=== PATIENT | female | born 1990 | race Caucasian/White ===

== ENCOUNTER 2017-01-13 10:29 | Observation (INO) ==
[2017-01-13] MEDS ORDERED: 0.9 % Sodium Chloride 1,000 ML IVC ONE ×2 (11:41→14:23)
[2017-01-13] MEDS ORDERED: Pantoprazole 40 MG VIAL IVP ONE (11:41)
[2017-01-13] MEDS ORDERED: Ondansetron 4 MG/2 ML VIAL IVP ONE (11:41)
--- NOTE | 2017-01-13 11:46 | Emergency Department Note ---
Disposition Clinical Impression: Enteritis Abdominal pain Qualifiers: Abdominal location: epigastric Qualified Code(s): R10.13 - Epigastric pain Disposition: Admitted As Inpatient Condition: Good Referrals: NO,PCP [Primary Care Provider] - Forms: Work/School Release, ED Satisfaction Letter Time of Disposition: 14:14 Abdominal Pain HPI - General Chief Complaint: ED Abdominal Pain Stated Complaint: Vomitting,Hx ulcers Time Seen by Provider: 01/13/17 11:40 Source: patient Mode of arrival: ambulatory Limitations: no limitations Nursing Notes Reviewed: Yes Vital Signs Reviewed: Yes - History of Present Illness HPI Narrative: 26-year-old female who comes in complaining of epigastric abdominal pain. Patient has a history of peptic ulcers in the past. Patient had been on Nexium however her doctor's closed their doors and she hasn't had it in a while. She developed stabbing epigastric pain this morning about 4 AM. She's had nausea vomiting and there has been some blood in it. Pt Subjective Complaint: abdominal pain Onset (ago): hour(s) Consistency: constant (Several) Location: epigastric Pain Severity: severe Pain Scale: 10 Quality: stabbing Radiation: none Migration to: no migration Improves with: nothing Worsens with: nothing Context: history of similar episodes Associated symptoms: Reports: nausea, vomiting, hematemesis Treatments prior to arrival: none - Related Data Home Medications Medication Instructions Recorded Confirmed Cetirizine HCl [Zyrtec] 10 mg PO DAILY 06/27/16 06/27/16 Ciprofloxacin [Cipro] 500 mg PO BID 06/27/16 06/27/16 Diclofenac Sodium [Voltaren] 50 mg PO Q8HR 06/27/16 06/27/16 MetroNIDAZOLE [Flagyl] 500 mg PO TID 06/27/16 06/27/16 Ondansetron ODT [Zofran ODT] 4 mg SL Q4HR 06/27/16 06/27/16 Promethazine [Phenergan] 25 mg PO Q8HR 06/27/16 06/27/16 Previous Rx's Medication Instructions Recorded Dicyclomine [Bentyl] 10 mg PO QID PRN #20 capsule 06/27/16 OxyCODONE/APAP 5/325 [Percocet 1 each PO Q6HR PRN #14 tablet 06/27/16 5/325 MG] Oxycodone HCl/Acetaminophen 1 each PO QID PRN #8 tablet 07/26/16 [Percocet 5-325 mg Tablet] Allergies Allergy/AdvReac Type Severity Reaction Status Date / Time Nickel Allergy Rash Verified 01/13/17 11:06 acetaminophen [From Vicodin] AdvReac Agitated Verified 01/13/17 11:06 hydrocodone [From Vicodin] AdvReac Agitated Verified 01/13/17 11:06 ketorolac [From Toradol] AdvReac Agitated Verified 01/13/17 11:06 All systems ED: reviewed and negative except as stated. Constitutional: Denies: fever, chills, weakness, weight change Eyes: Denies: eye pain, eye discharge, vision change ENT ED: Denies: ear pain, throat pain, dental pain, hearing loss, epistaxis, congestion, dysphagia Cardiovascular: Denies: chest pain, palpitations, dyspnea on exertion, edema, syncope Respiratory: Denies: cough, dyspnea, wheezes, hemoptysis, stridor Gastrointestinal: Reports: abdominal pain, nausea, vomiting, hematochezia. Denies: diarrhea, constipation, hematemesis, melena Genitourinary: Denies: dysuria, frequency, hematuria, discharge Musculoskeletal: Denies: back pain, neck pain, arthralgia, myalgia Integumentary: Denies: rash, abrasion, lesions Neurological: Denies: headache, weakness, numbness, paresthesias, confusion, abnormal gait, vertigo Psychiatric: Denies: anxiety, depression, suicidal thoughts, homicidal thoughts , auditory hallucinations, visual hallucinations Endocrine: Denies: fatigue Hematological/Lymphatic: Denies: easy bleeding, easy bruising Allergic/Immunologic: Denies: facial swelling, urticaria Abdominal Pain PMH - Past Medical History Medical history: Reports: no medical history Female Surgical History: Reports: cholecystectomy, herniorrhaphy, hysterectomy, other [employer] history: Reports: endometriosis, ectopic , bilateral tubal ligation Psychiatric history: Reports: anxiety, bipolar, depression, panic disorder - Social History Smoking status: Current every day smoker Alcohol use: Reports: none Drug use: Reports: none Physical Exam - General Limitations: no limitations General appearance: alert, in no apparent distress - Head Head exam: atraumatic, normocephalic, normal inspection - Eye Eye exam: Present: normal appearance, PERRL, EOMI - Expanded Eye Exam Pupils: Left: reactive - ENT ENT exam: normal exam, normal oropharynx, mucous membranes moist - Expanded ENT Exam External ear exam: Present: normal external inspection Mouth exam: Present: normal external inspection Teeth exam: Present: normal inspection Throat exam: Present: normal inspection - Neck Neck exam: Present: normal inspection, full ROM, trachea midline - Chest Chest inspection: Present: normal inspection, symmetric chest wall rise - Respiratory Respiratory exam: Present: normal lung sounds bilaterally - Cardiovascular Cardiovascular exam: Present: regular rate, normal rhythm, normal heart sounds - Abdominal Exam Abdominal exam: Present: soft, tenderness. Absent: distention, guarding, rebound, rigidity Abdominal tenderness: Present: epigastrium - Extremities Exam Extremities exam: Absent: tenderness, pedal edema - Expanded Upper Extremity Exam Vascular exam: Normal: capillary refill, radial pulse - Expanded Lower Extremity Exam Foot/toe exam: Present: normal inspection, full ROM Neurovascular/Tendon exam: Absent: motor deficit, sensory deficit, tendon deficit Gait: observed and normal - Back Exam Back exam: Present: normal inspection, tenderness - Neurological Exam Neurological exam: Present: alert, oriented X3 - Expanded Neurological Exam Patient oriented to: Present: person, place, time Coma Scale Eye Opening: Spontaneous Coma Scale Motor Response: Obeys Commands Coma Scale Verbal Response: Oriented Coma Scale Total: 15 - Psychiatric Psychiatric exam: Present: normal affect, normal mood - Skin Skin exam: Present: warm, dry, intact, normal color Course - Reevaluation(s) Reevaluation #1: 26-year-old who states she has a history of peptic ulcer disease is been vomiting with blood in her vomit. He states she's had intermittent problems with abdominal pain for a couple of years. Workup here includes a normal hemoglobin. Her sedimentation rate is normal. CT scan shows multiple loops of thickened bowel distal ileum infectious or inflammatory enteritis. Patient was given Protonix, IV Cipro and Flagyl. Patient continues to be nauseated and vomiting will admit for further evaluation. Time: 14:34 - Consultations Consultation #1: Discussed with Dr. Osei, it. Time: 14:35 Vital Signs Temperature 98.3 F 01/13/17 11:02 Pulse Rate 83 01/13/17 11:02 Respiratory Rate 16 01/13/17 11:02 Blood Pressure 125/89 01/13/17 11:02 O2 Sat by Pulse Oximetry 100 01/13/17 11:02 Temperature 98.3 F 01/13/17 11:02 Pulse Rate 88 01/13/17 14:08 Respiratory Rate 16 01/13/17 14:08 Blood Pressure 95/77 01/13/17 14:08 O2 Sat by Pulse Oximetry 98 01/13/17 14:08 Oxygen Delivery Oxygen Delivery Room Air Abdominal Pain - Lab Data Lab results reviewed: Yes I reviewed the patient's lab results. Result diagrams: 01/13/17 11:52 01/13/17 11:52 Lab Results 01/13/17 01/13/17 01/13/17 Range/Units 11:52 11:52 11:52 WBC 7.5 (4.3-11.1) K/mcL RBC 4.19 (3.82-4.97) M/mcL Hgb 12.6 (11.5-15.4) g/dL Hct 38.3 (35.3-44.9) % MCV 91.4 (83.0-100.0) fL MCH 30.1 (28.0-33.3) pg MCHC 32.9 (31.6-35.5) g/dL RDW 11.8 (11.5-14.5) % Plt Count 200 (140-400) K/mcL MPV 9.0 L (9.4-12.4) fL Immature Gran % 0.4 (0-4) % Seg Neutrophils % 76.2 % Lymphocytes % 15.1 % Monocytes % 5.2 % Eosinophils % 2.8 % Basophils % 0.3 % Neutrophils # 5.7 (1.6-8.9) K/mcL Lymphocytes # 1.1 (0.6-4.6) K/mcL Monocytes # 0.4 (0.0-1.3) K/mcL Eosinophils # 0.2 (0.0-0.6) K/mcL Basophils # 0.0 (0.0-0.2) K/mcL ESR 1 (0-15) mm/hr Sodium 142 (136-145) mEq/L Potassium 2.8 L (3.5-4.5) mEq/L Chloride 120 H (98-109) mEq/L Carbon Dioxide 19 (19-29) mEq/L BUN 7 (7-20) mg/dL Creatinine 0.54 L (0.57-1.11) mg/dL Est GFR ( Amer) > 60 (> 60) Est GFR (Non-Af Amer) > 60 (> 60) BUN/Creatinine Ratio 13 (6-26) Glucose 58 L (70-99) mg/dL Calculated Osmolality 290 (280-300) Calcium 6.1 L (8.6-10.8) mg/dL Ionized Calcium (1.15-1.35) mmol/L Total Bilirubin 0.4 (0.2-1.2) mg/dL Direct Bilirubin 0.2 (0.0-0.5) mg/dL Indirect Bilirubin 0.2 (0.0-1.2) mg/dL AST 14 (5-34) Units/L ALT 14 (0-55) Units/L Alkaline Phosphatase 64 (38-126) Units/L Serum Total Protein 4.8 L (6.0-8.3) g/dL Albumin 2.7 L (3.5-5.0) g/dL Globulin 2.1 L (2.4-3.5) g/dL Albumin/Globulin Ratio 1.3 (1.1-2.2) Amylase 36 (25-125) Units/L Lipase 11 (8-78) Units/L Urine Color (Yellow) Urine Clarity (Clear) Urine pH (5.0-8.0) pH Units Ur Specific [place] (1.010-1.025) Urine Protein (Neg-Trace) mg/dL Urine Glucose (UA) (Normal) mg/dL Urine Ketones (Negative) mg/dL Urine Blood (Negative) Urine Nitrite (Negative) Urine Bilirubin (Negative) Urine Urobilinogen (Normal) mg/dL Ur Leukocyte Esterase (Negative) Ur Culture Indicated? (NO) 01/13/17 01/13/17 Range/Units 11:59 13:25 WBC (4.3-11.1) K/mcL RBC (3.82-4.97) M/mcL Hgb (11.5-15.4) g/dL Hct (35.3-44.9) % MCV (83.0-100.0) fL MCH (28.0-33.3) pg MCHC (31.6-35.5) g/dL RDW (11.5-14.5) % Plt Count (140-400) K/mcL MPV (9.4-12.4) fL Immature Gran % (0-4) % Seg Neutrophils % % Lymphocytes % % Monocytes % % Eosinophils % % Basophils % % Neutrophils # (1.6-8.9) K/mcL Lymphocytes # (0.6-4.6) K/mcL Monocytes # (0.0-1.3) K/mcL Eosinophils # (0.0-0.6) K/mcL Basophils # (0.0-0.2) K/mcL ESR (0-15) mm/hr Sodium (136-145) mEq/L Potassium (3.5-4.5) mEq/L Chloride (98-109) mEq/L Carbon Dioxide (19-29) mEq/L BUN (7-20) mg/dL Creatinine (0.57-1.11) mg/dL Est GFR ( Amer) (> 60) Est GFR (Non-Af Amer) (> 60) BUN/Creatinine Ratio (6-26) Glucose (70-99) mg/dL Calculated Osmolality (280-300) Calcium (8.6-10.8) mg/dL Ionized Calcium 1.20 (1.15-1.35) mmol/L Total Bilirubin (0.2-1.2) mg/dL Direct Bilirubin (0.0-0.5) mg/dL Indirect Bilirubin (0.0-1.2) mg/dL AST (5-34) Units/L ALT (0-55) Units/L Alkaline Phosphatase (38-126) Units/L Serum Total Protein (6.0-8.3) g/dL Albumin (3.5-5.0) g/dL Globulin (2.4-3.5) g/dL Albumin/Globulin Ratio (1.1-2.2) Amylase (25-125) Units/L Lipase (8-78) Units/L Urine Color Yellow (Yellow) Urine Clarity Clear (Clear) Urine pH 6.5 (5.0-8.0) pH Units Ur Specific [place] 1.020 (1.010-1.025) Urine Protein Negative (Neg-Trace) mg/dL Urine Glucose (UA) Normal (Normal) mg/dL Urine Ketones Negative (Negative) mg/dL Urine Blood Negative (Negative) Urine Nitrite Negative (Negative) Urine Bilirubin Negative (Negative) Urine Urobilinogen Normal (Normal) mg/dL Ur Leukocyte Esterase Negative (Negative) Ur Culture Indicated? NO (NO) - Radiology Data Radiology results reviewed: Yes I reviewed the patient's radiology results. Abdomen/Pelvis CT 01/13/17 11:42 IMPRESSION: 1. Circumferential wall thickening with perienteric stranding involving multiple loops of ileum likely reflecting an infectious or inflammatory enteritis. The terminal ileum is otherwise unremarkable. 2. No other acute abdominal or pelvic abnormality on this unenhanced study. D/ / 01/13/2017 13:23:21 Kadie Barnett MD / edward Interpreting Provider: Kadie Barnett MD
[2017-01-13 12:14] LABS: Bilirubin,Urine Negative (Negative); Blood,Urine Negative (Negative); Clarity,Urine Clear (Clear); Color,Urine Yellow (Yellow); Glucose,Urine (UA) Normal (Normal); Ketones,Urine Negative (Negative); Leukocyte Esterase,Urine Negative (Negative); Nitrite,Urine Negative (Negative); PH,Urine 6.5 pH Units (5.0-8.0); Protein,Urine Negative (Neg-Trace); Urobilinogen,Urine Normal (Normal)
[2017-01-13 12:33] LABS: Basophils % 0.3 %; Eosinophils # 0.2 K/mcL (0.0-0.6); Eosinophils % 2.8 %; Hematocrit 38.3 % (35.3-44.9); Hemoglobin 12.6 g/dL (11.5-15.4); Immature Granulocytes % 0.4 % (0-4); Lymphocytes # 1.1 K/mcL (0.6-4.6); Lymphocytes % 15.1 %; Mean Corpuscular HGB Conc 32.9 g/dL (31.6-35.5); Mean Corpuscular Hemoglobin 30.1 pg (28.0-33.3); Mean Corpuscular Volume 91.4 fL (83.0-100.0); Monocytes # 0.4 K/mcL (0.0-1.3); Monocytes % 5.2 %; Neutrophils # 5.7 K/mcL (1.6-8.9); Platelet Count 200 K/mcL (140-400); Red Blood Count 4.19 M/mcL (3.82-4.97); Red Cell Distribution Width 11.8 % (11.5-14.5); Segmented Neutrophils % 76.2 %
[2017-01-13] MEDS ORDERED: *HR* HYDROmorphone (PF) 1 MG/ML SYRINGE IVP ONE ×2 (12:50→14:12)
[2017-01-13 12:55] LABS: Alanine Aminotransferase 14 Units/L (0-55); Albumin 2.7 g/dL (3.5-5.0); Albumin/Globulin Ratio 1.3 (1.1-2.2); Alkaline Phosphatase 64 Units/L (38-126); Amylase 36 Units/L (25-125); Aspartate Amino Transferase 14 Units/L (5-34); BUN/Creatinine Ratio 13 (6-26); Bilirubin,Direct 0.2 mg/dL (0.0-0.5); Bilirubin,Indirect 0.2 mg/dL (0.0-1.2); Bilirubin,Total 0.4 mg/dL (0.2-1.2); Blood Urea Nitrogen 7 mg/dL (7-20); Calcium 6.1 mg/dL (8.6-10.8); Carbon Dioxide 19 mEq/L (19-29); Chloride 120 mEq/L (98-109); Globulin 2.1 g/dL (2.4-3.5); Glucose 58 mg/dL (70-99); Lipase 11 Units/L (8-78); Osmolality,Calculated 290 (280-300); Potassium 2.8 mEq/L (3.5-4.5); Sodium 142 mEq/L (136-145); Total Protein 4.8 g/dL (6.0-8.3); eGFR For African Americans > 60 (> 60); eGFR For Non-African Americans > 60 (> 60)
[2017-01-13] MEDS ORDERED: MetroNIDAZOLE 500 MG/100 ML 500 MG/100 ML BAG IVPB ONE (14:25)
[2017-01-13] MEDS ORDERED: Naloxone 0.4 MG/ML INJ IVP PRN (18:12)
[2017-01-13] MEDS ORDERED: 0.9 % Sodium Chloride 1,000 ML IVC SCH (18:15)
--- NOTE | 2017-01-13 18:17 | Internal Med History&Physical ---
Date of Encounter: 01/13/17 Time of Encounter: 17:50 Assessment and Plan (1) Gastroenteritis Current visit: Yes Status: Acute this could be infectious vs inflammatory, CT abdomen reported ileitis, etiology is unclear-no personal or family history of inflammatory bowel disease, we will manage conservatively for outpatient followup with a GI specialist, do not believe that antibiotics is indicated NPO for now IVF, pain management, electrolyte replacement (2) Hypokalemia due to loss of potassium Current visit: Yes Status: Acute from GI loss, we will replace aggressively and monitor electrolytes (3) Hypomagnesemia Current visit: Yes Status: Acute from GI loss, we will replace aggressively and monitor electrolytes (4) Hypophosphatemia Current visit: Yes Status: Acute from GI loss, we will replace aggressively and monitor electrolytes (5) PUD (peptic ulcer disease) Current visit: Yes Status: Acute she has not been on her medications in a while and this current predicament may have been precipitated by hunger as she went to bed the prior night without food , we will manage with IV protonix, avoid NSAIDS for outpatient GI followup for endoscopy consideration (6) Mood disorder Current visit: Yes Status: Chronic patient is not on any medication at home, this seems to be self managed, we will monitor Internal Medicine - H&P: HPI Chief complaint: abdominal pain, nausea and vomiting Admitted From: Emergency Dept Plans for Post Hospital Care: Home History of present illness: Ms. Martinez is a 26 year old female with a history of clinically diagnosed peptic ulcer disease was in her usual state of health until this morning when she began to experience epigastric pain. She went to bed last night without eating because she got home late from work so she did not get the chance to eat. She was awoken this morning at around 4am with severe epigastric pain that was both stabbing and burning in character. She reports that the severity was 10/10, radiated to her back, had no alleviating or relieving factors. This was followed by nausea and vomiting, the initial vomitus was blood streaked but subsequent ones contained clear contents. She also had several bouts of loose stools, she presented here for that reason for further evaluation. Of note she was diagnosed with peptic ulcer about 5 years ago, she has never had an EGD, she had been on NSAIDS at the time for endometriosis and since the diagnosis she has avoided NSAIDS. She was on Nexium and her symptoms were controlled but for the past 3 years she has not been on nexium. Her symptoms has been recurrent but are usually managed with milk, this is the worse it has been so far. Past Med Surg Social Fam HX - Past Medical History Source: patient Medical history: other (PUD) Psychiatric history: anxiety, bipolar, depression, panic disorder - Past Surgical History Surgical History: cholecystectomy, herniorrhaphy, hysterectomy, ANNA/BSO, other ( Tonsillectomy, adhesiotomy, d/c) - Social History Smoking Status: Current every day smoker (1 pack lasts a week) Smokeless Tobacco Status: No Alcohol use: none Drug use: none Occupational status: employed Current living situation: Home - Independent, With Family Activity Level: Independent ambulation Additional social history: she is in a relationship and has 3 children - Family History Grandmother Family Member Ethnicity: Non- Living Status: Age at : 64 Cause of : lung cancer Hx Family Cardiac Disorders: No Hx Family Respiratory Disorders: No Hx Family Cancer: Yes Hx Family GI Disorders: No Hx Family Genitourinary Disorders: No Hx Family Endocrine Disorder: Yes Hx Family Musculoskeletal Disorders: No Hx Family Neuromuscular Disorders: No Hx Family Neurologic Disorders: No Hx Family HEENT Disorders: No Hx Family Autoimmune Disorders: No Hx Family Reproductive Disorders: No Hx Family Psychosocial Disorders: No Hx Family Medical Disorders: No Internal Medicine - H&P: Meds No Known Home Drugs 01/13/17 [History] Allergies Nickel Allergy (Verified 01/13/17 11:06) Rash acetaminophen [From Vicodin] Adverse Reaction (Verified 01/13/17 11:06) Agitated hydrocodone [From Vicodin] Adverse Reaction (Verified 01/13/17 11:06) Agitated ketorolac [From Toradol] Adverse Reaction (Verified 01/13/17 11:06) Agitated All Systems PM: A 10-system review of systems was performed and is negative for pertinent findings except as documented above in the HPI. - Constitutional Constitutional: fatigue, malaise, weakness, no chills, no fever(s), no night sweats - EENT Eyes: no change in vision, no discharge, no pain, no photophobia Ears: no ear discharge, no ear pain, no tinnitus Nose, mouth and throat: no dysphagia, no nasal discharge, no neck pain, no sore throat - Cardiovascular Cardiovascular ROS IM: no chest pain, no diaphoresis, no dyspnea, no lightheadedness, no palpitations, no syncope - Respiratory Respiratory: cough, no dyspnea, no wheezing, no excessive phlegm production - Gastrointestinal Gastrointestinal: abdominal pain, change in stool character, diarrhea, dyspepsia , heartburn, hematemesis, loose stools, nausea, vomiting, no hematochezia, no melena - Genitourinary Genitourinary: no change in urinary stream, no dysuria, no flank pain, no hematuria - Musculoskeletal Musculoskeletal ROS IM: no numbness, no tingling - Integumentary Integumentary IM: no rash, no unusual bruising - Neurological Neurological ROS: no confusion, no convulsions, no focal weakness, no numbness, no tingling, no tremor(s) - Psychiatric Psychiatric: anxiety, depression, no auditory hallucinations, no hallucinations - Endocrine Endocrine IM: fatigue, no polyphagia, no polyuria - Hematologic/Lymphatic Hematologic/Lymphatic: no easy bruising - Allergic/Immunologic Allergic/Immunologic: GI upset with certain foods, no tongue swelling, no throat swelling - Constitutional Vitals: Temp Pulse Resp BP Pulse Ox 97.4 F L 61 14 101/63 100 01/13/17 16:28 01/13/17 16:28 01/13/17 16:28 01/13/17 16:28 01/13/17 16:28 PHYSICAL EXAMINATION: CONSTITUTIONAL: Young female, lying in bed, Alert, in acute distress, makes good eye contact HEENT: NC/AT, EOMI, PERRLA, anicteric sclera, normal conjunctiva, supple, clear nares, dry mucous membranes, clear oropharynx, central uvula RESP: no chest wall tenderness with palpation, lungs are clear to auscultation bilaterally, good AE bilaterally, No crackles or wheeze CARDIO: Normal hearts sounds; S1 and 2, RRR with no murmurs, no JVD, no ankle edema GI: Soft, full, tenderness in thew epigastric area, no organomegaly felt. MUSCULOSKELETAL: grossly normal movements bilaterally, no deformities noted, no calf tenderness EXTREMITIES: No clubbing, cyanosis or edema, NEUROLOGIC: CN 2-12 intact grossly. No motor/sensory deficit appreciated, PSYCHIATRY: AAO x 3. Mood is fair, exhibits appropriate judgement SKIN: no skin rash or ulcers noted Internal Med - H&P Results - Labs CBC & Chem 7: 01/13/17 11:52 01/13/17 11:52 - Diagnostic Studies CT scan - abdomen Status: image reviewed by me
[2017-01-13] MEDS: *HR* HYDROmorphone (PF) 1 MG/ML SYRINGE IVP PRN ×3 (19:06→23:19)
[2017-01-13 19:52] LABS: Magnesium 0.9 mg/dL (1.6-2.6); Phosphorous 1.9 mg/dL (2.3-4.7)
[2017-01-14] MEDS ORDERED: Ondansetron 4 MG/2 ML VIAL IVP SCH
[2017-01-14] MEDS ORDERED: Magnesium Sulfate 4 GM in D5% in Water 100 ML IVPB ONE (00:25)
[2017-01-14] MEDS ORDERED: Potassium Phosphate 44 MEQ in 0.9 % Sodium Chloride 250 ML IVPB ONE (00:25)
[2017-01-14] MEDS: Nicotine 21 MG PATCH.TD24 TD SCH ×2 (01:09→07:22)
[2017-01-14] MEDS ORDERED: Potassium Chloride 40 MEQ, Lidocaine 1% 2 ML in D5% in Water 500 ML IVPB ONE (01:13)
[2017-01-14] MEDS: *HR* HYDROmorphone (PF) 1 MG/ML SYRINGE IVP PRN ×3 (03:23→16:35)
[2017-01-14] MEDS: *HR* Heparin 5,000 UNIT/ML VIAL SQ SCH ×2 (05:09→16:36)
[2017-01-14] MEDS: Pantoprazole 40 MG VIAL IVP SCH ×2 (05:10→16:36)
[2017-01-14 08:15] LABS: Basophils % 0.2 %; Eosinophils # 0.2 K/mcL (0.0-0.6); Eosinophils % 3.5 %; Hematocrit 36.4 % (35.3-44.9); Hemoglobin 11.9 g/dL (11.5-15.4); Immature Granulocytes % 0.4 % (0-4); Lymphocytes # 2.1 K/mcL (0.6-4.6); Lymphocytes % 45.8 %; Mean Corpuscular HGB Conc 32.7 g/dL (31.6-35.5); Mean Corpuscular Hemoglobin 29.4 pg (28.0-33.3); Mean Corpuscular Volume 89.9 fL (83.0-100.0); Mean Platelet Volume 8.9 fL (9.4-12.4); Monocytes # 0.5 K/mcL (0.0-1.3); Monocytes % 10.4 %; Neutrophils # 1.8 K/mcL (1.6-8.9); Platelet Count 182 K/mcL (140-400); Red Blood Count 4.05 M/mcL (3.82-4.97); Red Cell Distribution Width 11.8 % (11.5-14.5); Segmented Neutrophils % 39.7 %
[2017-01-14] MEDS ORDERED: *HR* HYDROcodone/Acet 5/325 mg TABLET PO PRN (08:58)
[2017-01-14] MEDS: Ondansetron ODT 4 MG TAB.RAPDIS SL PRN ×2 (10:16→20:11)
[2017-01-14 11:35] LABS: BUN/Creatinine Ratio 8 (6-26); Blood Urea Nitrogen 7 mg/dL (7-20); Calcium 8.8 mg/dL (8.6-10.8); Carbon Dioxide 20 mEq/L (19-29); Chloride 108 mEq/L (98-109); Glucose 93 mg/dL (70-99); Magnesium 2.5 mg/dL (1.6-2.6); Osmolality,Calculated 284 (280-300); Phosphorous 3.6 mg/dL (2.3-4.7); Potassium 4.2 mEq/L (3.5-4.5); Sodium 138 mEq/L (136-145); eGFR For African Americans > 60 (> 60); eGFR For Non-African Americans > 60 (> 60)
[2017-01-14] MEDS: *HR* OxyCODONE Immed Rel 5 MG TABLET PO PRN ×2 (11:56→18:30)
[2017-01-14] MEDS: Ringers Solution, Lactated 1,000 ML IVC SCH ×2 (11:58→21:13)
[2017-01-14] MEDS ORDERED: *HR* HYDROmorphone (PF) 1 MG/ML SYRINGE IVP ONE (13:57)
[2017-01-14] MEDS ORDERED: Polyethylene Glycol 3350 255 GM POWDER PO ONE (17:00)
--- NOTE | 2017-01-14 19:44 | Internal Med Progress Note ---
Date of Encounter: 01/14/17 Time of Encounter: 12:00 - Assessment and plan (1) Abdominal pain Current Visit: Yes Status: Acute Assessment and plan: Severe abdominal pain due to ileitis. Pain medications. GI service consult. Qualifiers: Abdominal location: epigastric Qualified Code(s): R10.13 - Epigastric pain (2) Ileitis Current Visit: Yes Status: Acute Assessment and plan: CT of the abdomen and pelvis revealed circumferential wall thickening with perienteric stranding involving multiple loops of ileum. Terminal ileum is unremarkable. Nothing by mouth. GI consulted for possible colonoscopy tomorrow. Continue pain control. IV fluids. (3) Hypokalemia due to loss of potassium Current Visit: Yes Status: Acute Assessment and plan: Replete. (4) Hypomagnesemia Current Visit: Yes Status: Acute Assessment and plan: Replete. (5) Hypophosphatemia Current Visit: Yes Status: Acute Assessment and plan: Replete. - Subjective Interval history: Patient reports severe abdominal pain after eating her breakfast. Mild nausea. No vomiting. No diarrhea. - Constitutional Vitals: Temp Pulse Resp BP Pulse Ox 97.7 F 61 13 103/65 98 01/14/17 07:35 01/14/17 07:35 01/14/17 07:35 01/14/17 07:35 01/14/17 07:35 General appearance: Present: cooperative, A&O X 3, pleasant, no acute distress, answers questions appropriately - Respiratory Respiratory exam: Present: CTAB - Cardiovascular Cardiovascular exam: Present: RRR - GI/Abdominal GI/Abdominal exam: Present: distended (Mildly distended), normal bowel sounds, soft, tenderness (Severe Diffuse tenderness) - Extremities Exam Extremities exam: Absent: pedal edema - Back Exam Back exam: Absent: CVA tenderness (L), CVA tenderness (R) - Neurological Exam Neurological exam: Present: alert, oriented X3, no focal deficits, strengths equal and symetr throughout. Absent: facial droop, speech deficit - Skin Skin exam: Absent: rash Internal Medicine: Result - Labs CBC & Chem 7: 01/14/17 08:05 01/14/17 10:08 Labs: Short CBC 01/14/17 Range/Units 08:05 WBC 4.5 (4.3-11.1) K/mcL Hgb 11.9 (11.5-15.4) g/dL Hct 36.4 (35.3-44.9) % Plt Count 182 (140-400) K/mcL Neutrophils # 1.8 (1.6-8.9) K/mcL BMP 01/14/17 10:08 Sodium 138 Potassium 4.2 D Chloride 108 Carbon Dioxide 20 BUN 7 Creatinine 0.87 D Glucose 93 Calcium 8.8 D - Impressions Impressions KUB X-Ray 01/14/17 15:14 IMPRESSION: Nonspecific, nonobstructive bowel gas pattern. D/ / Balbir Hernandez MD / Balbir Hernandez MD Interpreting Provider: Balbir Hernandez MD Consult Discharge Plan - Plan Referrals: Elan Cueva [Non-Partnered Physician] - 01/25/17 5:00 pm
[2017-01-15] MEDS: *HR* HYDROmorphone (PF) 1 MG/ML SYRINGE IVP PRN ×2 (00:48→08:25)
[2017-01-15] MEDS: *HR* OxyCODONE Immed Rel 5 MG TABLET PO PRN ×2 (03:31→15:37)
[2017-01-15] MEDS: Ringers Solution, Lactated 1,000 ML IVC SCH (05:52)
[2017-01-15] MEDS: Pantoprazole 40 MG VIAL IVP SCH (05:52)
[2017-01-15] MEDS: *HR* Heparin 5,000 UNIT/ML VIAL SQ SCH (05:53)
[2017-01-15 06:49] LABS: BUN/Creatinine Ratio 7 (6-26); Blood Urea Nitrogen 6 mg/dL (7-20); Calcium 9.6 mg/dL (8.6-10.8); Carbon Dioxide 25 mEq/L (19-29); Chloride 106 mEq/L (98-109); Glucose 80 mg/dL (70-99); Magnesium 1.7 mg/dL (1.6-2.6); Osmolality,Calculated 285 (280-300); Phosphorous 3.7 mg/dL (2.3-4.7); Potassium 4.2 mEq/L (3.5-4.5); Sodium 139 mEq/L (136-145); eGFR For African Americans > 60 (> 60); eGFR For Non-African Americans > 60 (> 60)
--- NOTE | 2017-01-15 07:53 | Anesthesia Evaluation PreOp ---
Date of Encounter: 01/15/17 Time of Encounter: 07:51 - Past History Planned Operation: EGD/Colonoscopy Cardiac History: Denies any Significant Hx Pulmonary History: Smoker (13 years) [employer] History: Denies Any Significant HX Other Medical History: GERD, Other (H/O PUD) Anesthesia History: No Prior Anesthetic Complications, Past Anesthesia ( hysterectomy) Alcohol Use: none Drug use: none Medications and Allergies No Known Home Drugs 01/13/17 [History] Allergies Nickel Allergy (Verified 01/13/17 11:06) Rash acetaminophen [From Vicodin] Adverse Reaction (Verified 01/13/17 11:06) Agitated hydrocodone [From Vicodin] Adverse Reaction (Verified 01/13/17 11:06) Agitated ketorolac [From Toradol] Adverse Reaction (Verified 01/13/17 11:06) Agitated - Meds/Allergy Pre-op Review Medications Reviewed: Yes Allergies Reviewed: Yes Beta Blockers on Current Med List: No Anesthesia Results - Labs 01/14/17 08:05 01/15/17 06:27 Anesthesia Exam Vital Signs/O2 Sat, Most Current Temp Pulse Resp BP Pulse Ox 97.9 F 60 14 100/62 98 01/15/17 06:55 01/15/17 06:55 01/15/17 06:55 01/15/17 06:55 01/15/17 06:55 Height: 5'6''/1.68 m Weight: 125 lbs/56.7 kg NPO (# of Hours): 8 Pain Scale: 10 Pain Scale Used: Numeric (1 - 10) - HEENT Pupil (Motor): EOMI Mallampati: II Teeth: Normal Oral Opening: Greater than 3 - [employer] LOC: Oriented [employer] Motor: Normal RUE, Normal LUE, Normal RLE, Normal LLE, Normal Face [employer] Sensory: Normal: RUE, LUE, RLE, LLE, Face - Cardiac Rhythm: Regular Murmur: None - Pulmonary Breath Sounds: bilateral Clear Respiratory Effort: Symmetrical Anesthesia Assess/Plan ASA Score: 2 Modified Ann Scale for Level of Consciousness: Cooperative, oriented, and tranquil Anesthetic Plan: MAC Monitoring Plan: Standard Monitors
[2017-01-15] MEDS: Nicotine 21 MG PATCH.TD24 TD SCH (08:29)
[2017-01-15] MEDS ORDERED: Tetracaine/Benzocaine/Butamben 200MG/SPRAY (100SPY/BOT) MM ONE (09:27)
[2017-01-15] MEDS ORDERED: Simethicone 40 MG/0.6 ML MLS IR ONE (09:27)
[2017-01-15] MEDS ORDERED: 0.9 % Sodium Chloride 500 ML IVC SCH (09:30)
--- NOTE | 2017-01-15 11:23 | Gastroenterology Consult Note ---
<Abhinav Xiao Baltazar - Last Filed: 01/15/17 11:18> Date of Encounter: 01/15/17 Time of Encounter: 10:20 - Assessment and plan (1) Abdominal pain Status: Acute Assessment and plan: CT A/P showed circumferential wall thickening with perienteric stranding involving multiple loops of ileum likely reflecting infectious or inflammatory enteritis, the terminal ileum was otherwise unremarkable. Plan for EGD and colonoscopy today, if negative, may consider capsule endoscopy as outpatient. Follow up with Dr. Palmer as outpatient in 2 weeks. Continue pain control. Qualifiers: Abdominal location: epigastric Qualified Code(s): R10.13 - Epigastric pain (2) Ileitis Status: Acute Assessment and plan: Plan for EGD and colonoscopy today, if negative, may consider capsule endoscopy as outpatient. Follow up with Dr. Palmer as outpatient in 2 weeks. Continue pain control. - Time Spent With Patient Total time spent is greater than 50% in coordination of care (as documented) at patient's floor/unit and/or counseling patient: GI History of Present Illness - Data of Consult Patient: new to practice Consult date: 01/15/17 Requesting Physician: Emeli Saldaña - Consult Narrative Reason for consult: abdominal pain, CT with ileitis History of present illness: Ms. Martinez is a 26 year old female with PMHx of PUD who presented with severe epigastric pain that woke her up from sleep, followed by nausea and vomiting. She reports blood streaks in her initial vomitus, but subsequent ones contained clear liquid. She also reports several episodes of loose stools. CT A/P showed circumferential wall thickening with perienteric stranding involving multiple loops of ileum likely reflecting infectious or inflammatory enteritis, the terminal ileum was otherwise unremarkable. Procedures: None NSAIDs: None Anticoagulation: None Past Med Surg Social Fam HX - Past Medical History Medical history: other (PUD) Psychiatric history: anxiety, bipolar, depression, panic disorder - Past Surgical History Surgical History: cholecystectomy, herniorrhaphy, hysterectomy, ANNA/BSO, other ( Tonsillectomy, adhesiotomy, d/c) - Social History Smoking Status: Current every day smoker (1 pack lasts a week) Smokeless Tobacco Status: No Alcohol use: none Drug use: none - Family History Grandmother Family Member Ethnicity: Non- Living Status: Age at : 64 Cause of : lung cancer Hx Family Cardiac Disorders: No Hx Family Respiratory Disorders: No Hx Family Cancer: Yes Hx Family GI Disorders: No Hx Family Genitourinary Disorders: No Hx Family Endocrine Disorder: Yes Hx Family Musculoskeletal Disorders: No Hx Family Neuromuscular Disorders: No Hx Family Neurologic Disorders: No Hx Family HEENT Disorders: No Hx Family Autoimmune Disorders: No Hx Family Reproductive Disorders: No Hx Family Psychosocial Disorders: No Hx Family Medical Disorders: No - Gastrointestinal Gastrointestinal: Present: as per HPI - Constitutional Constitutional: as per HPI - EENT Eyes: as per HPI Ears: Present: as per HPI Nose, mouth and throat: Present: as per HPI - Cardiovascular Cardiovascular ROS: Present: as per HPI - Respiratory Respiratory IM: Present: as per HPI - Genitourinary Genitourinary: Absent: change in color, Urinary frequency - Neurological ROS Neurological GI: Present: as per HPI - Hematologic/Lymphatic Hematologic/Lymphatic pediatric: Present: as per HPI - Musculoskeletal Musculoskeletal ROS GI: Present: as per HPI - Integumentary Integumentary GI: Present: as per HPI - Psychiatric ROS Psychiatric GI: Present: as per HPI - Endocrine Endocrine IM: Present: as per HPI - Constitutional Vitals: Temp Pulse Resp BP Pulse Ox 97.7 F 61 16 129/78 99 01/15/17 10:58 01/15/17 10:58 01/15/17 10:58 01/15/17 10:58 01/15/17 10:58 General appearance: Present: cooperative, A&O X 3, no acute distress, answers questions appropriately - Head Head exam: Present: atraumatic, normocephalic - Eye Eye exam: Present: normal appearance, sclera anicteric - ENT ENT exam: Present: mucous membranes dry - Neck Neck exam general surgery: Present: normal inspection, trachea midline - Respiratory Respiratory exam: Present: CTAB. Absent: rales, rhonchi, wheezes - Cardiovascular Cardiovascular exam: Present: RRR, +S1, +S2 - GI/Abdominal GI/Abdominal exam: Present: soft, tenderness (generalized), no peritoneal signs. Absent: distended, firm, guarding - Rectal Rectal exam: Present: deferred - Extremities Exam Extremities exam: Present: warm - Neurological Exam Neurological exam: Present: no focal deficits - Psychiatric Psychiatric exam: Present: normal affect, normal mood - Skin Skin exam: Present: dry, intact, normal color, warm Results - Labs CBC & Chem 7: 01/14/17 08:05 01/15/17 06:27 Labs: Last Result ESR 1 mm/hr (0-15) 01/13/17 11:52 Calcium 9.6 mg/dL (8.6-10.8) 01/15/17 06:27 C-Reactive Protein 6 mg/L (Less than 5) H 01/15/17 10:13 Entire Visit Hgb 11.9 g/dL (11.5-15.4) 01/14/17 08:05 Hct 36.4 % (35.3-44.9) 01/14/17 08:05 Total Bilirubin 0.4 mg/dL (0.2-1.2) 01/13/17 11:52 AST 14 Units/L (5-34) 01/13/17 11:52 ALT 14 Units/L (0-55) 01/13/17 11:52 Amylase 36 Units/L (25-125) 01/13/17 11:52 Lipase 11 Units/L (8-78) 01/13/17 11:52 - Impressions Impressions KUB X-Ray 01/14/17 15:14 IMPRESSION: Nonspecific, nonobstructive bowel gas pattern. D/ / Balbir Hernandez MD / Balbir Hernandez MD Interpreting Provider: Balbir Hernandez MD Consult Discharge Plan - Plan Additional Instructions: continue with a soft diet at home. avoid heavy food. drink plenty of fluids. stop smoking, this could make worse the inflammation of your bowels. follow up in the clinic as scheduled. Referrals: Elan Cueva [Non-Partnered Physician] - 01/25/17 5:00 pm Tonja Palmer MD [Partnered Physician] - (follow up in 1-2 weeks (pls coordinate with [facility] clinic how to schedule a Capsule endoscopy as outpatient for this pt). Web request sent n 01/15/17.) Prescriptions: Ondansetron ODT [Zofran ODT] 4 mg SL Q6HR PRN #20 tab.rapdis PRN Reason: Nausea And Vomiting OxyCODONE Immed Rel [Roxicodone 5 MG] 2.5 mg PO Q6HR PRN #20 tablet PRN Reason: Pain Nicotine Patch [Nicoderm] 21 mg TD DAILY #30 patch.td24 <Tonja Palmer - Last Filed: 01/15/17 17:48> Date of Encounter: 01/15/17 - Time Spent With Patient Total time spent is greater than 50% in coordination of care (as documented) at patient's floor/unit and/or counseling patient: GI History of Present Illness - Data of Consult Requesting Physician: Emeli Saldaña - Consult Narrative History of present illness: Ms. Martinez is a 26 year old female - Constitutional Vitals: Temp Pulse Resp BP Pulse Ox 97.8 F 69 14 101/64 94 01/15/17 15:06 01/15/17 15:06 01/15/17 15:06 01/15/17 15:06 01/15/17 15:06 Results - Labs CBC & Chem 7: 01/14/17 08:05 01/15/17 06:27 Labs: Last Result ESR 1 mm/hr (0-15) 01/13/17 11:52 Calcium 9.6 mg/dL (8.6-10.8) 01/15/17 06:27 C-Reactive Protein 6 mg/L (Less than 5) H 01/15/17 10:13 Entire Visit Hgb 11.9 g/dL (11.5-15.4) 01/14/17 08:05 Hct 36.4 % (35.3-44.9) 01/14/17 08:05 Total Bilirubin 0.4 mg/dL (0.2-1.2) 01/13/17 11:52 AST 14 Units/L (5-34) 01/13/17 11:52 ALT 14 Units/L (0-55) 01/13/17 11:52 Amylase 36 Units/L (25-125) 01/13/17 11:52 Lipase 11 Units/L (8-78) 01/13/17 11:52 - Attending Attestation I examined this patient and my medical decision-making was reviewed with the BOILER WASHER/PA/Advanced Practice Nurse/Resident Physician. I agree with the documented findings, disposition and treatment plan as described except to the extent set forth below.
[2017-01-15 15:06] VITALS: BP 101/64
--- NOTE | 2017-01-15 15:46 | Discharge Summary ---
Date of Encounter: 01/15/17 Time of Encounter: 15:43 - Discharge Diagnosis (1) Abdominal pain Priority: Primary Status: Acute Qualifiers: Abdominal location: epigastric Qualified Code(s): R10.13 - Epigastric pain (2) Ileitis Priority: Primary Status: Acute (3) Hypokalemia due to loss of potassium Priority: Primary Status: Acute (4) Hypomagnesemia Priority: Primary Status: Acute (5) Hypophosphatemia Priority: Primary Status: Acute - Discharge Medications Prescriptions: Ondansetron ODT [Zofran ODT] 4 mg SL Q6HR PRN #20 tab.rapdis PRN Reason: Nausea And Vomiting OxyCODONE Immed Rel [Roxicodone 5 MG] 2.5 mg PO Q6HR PRN #20 tablet PRN Reason: Pain Nicotine Patch [Nicoderm] 21 mg TD DAILY #30 patch.td24 Home Medications: Nicotine Patch [Nicoderm] 21 mg TD DAILY #30 patch.td24 01/15/17 [Rx] Ondansetron ODT [Zofran ODT] 4 mg SL Q6HR PRN #20 tab.rapdis 01/15/17 [Rx] OxyCODONE Immed Rel [Roxicodone 5 MG] 2.5 mg PO Q6HR PRN #20 tablet 01/15/17 [Rx ] Allergies/Adverse Reactions: Allergies Nickel Allergy (Verified 01/13/17 11:06) Rash acetaminophen [From Vicodin] Adverse Reaction (Verified 01/13/17 11:06) Agitated hydrocodone [From Vicodin] Adverse Reaction (Verified 01/13/17 11:06) Agitated ketorolac [From Toradol] Adverse Reaction (Verified 01/13/17 11:06) Agitated Date of admission: 01/13/17 15:04 Primary care physician: PCP NO Consults: 01/14/17 15:14 Consult to Gastroenterology [CONS] Routine Consulting Provider: Gastroenterology Lauren Reason for Consult: SEVERE ABDOMINAL PAIN. CTAP SHOWED ILEITIS. SPOKE WITH ARTHUR SINGLETARY ABOUT POSSIBLE COLONOSCOPY Call Completed: Yes - Patient Status Disposition: Home, Self-Care Condition: Good Functional capacity at discharge: independent ambulation Overall status at discharge: patient is progressing back to baseline - Discharge Instructions Follow Up With: Elan Cueva [Non-Partnered Physician] - 01/25/17 5:00 pm Tonja Palmer MD [Partnered Physician] - (follow up in 1-2 weeks (pls coordinate with [facility] clinic how to schedule a Capsule endoscopy as outpatient for this pt). ) Forms: Work/School Release Additional Instructions: continue with a soft diet at home. avoid heavy food. drink plenty of fluids. stop smoking, this could make worse the inflammation of your bowels. follow up in the clinic as scheduled. - Diet and Activity Activity: resume usual activities as tolerated Diet: other (soft diet.) Interval History: patient tolerated her diet well. she still has mild abdominal pain but is eager to go home. Hospital course: Ms. Martinez is a 26 year old female with past medical history of anxiety and tobacco use who presented with a chief complaint of abdominal pain, nausea and vomiting. Patient reports recurrent episodes of abdominal pain, nausea and vomiting for the past year. She has been seen in the emergency department at least 5 times in the past year and was discharged home with the diagnosis of gastroenteritis. CT of the abdomen and pelvis revealed circumferential wall thickening with perienteric stranding involving multiple loops of ileum, Terminal ileum is unremarkable. Potassium was 2.8, phosphorus 1.9, magnesium 0.9. Patient was started on supportive therapy with IV fluids, pain medications , electrolyte replacement and nothing by mouth. Patient underwent EGD showing a normal esophagus, stomach and examined duodenum. She also underwent colonoscopy revealing a normal colon and Normal examined portion of the ileum. Biopsies taken. At discharge, patient's symptoms were improving (she was eating a soft diet and her pain was controlled with medications). ESR was 1. CRP was 6. PLAN: Capsule endoscopy as outpatient. Patient was instructed to follow a soft diet and to drink plenty of fluids. She was encouraged to quit smoking. She agreed. Follow up with primary care physician in one week for ileitis and tobacco cessation. Follow-up in Dr. Palmer's office for ileitis. Patient and mom verbalized understanding and agreed with the plan. All questions answered. - Time Spent with Patient Total time spent providing and/or coordinating discharge services: - Constitutional Vitals: Temp Pulse Resp BP Pulse Ox 97.8 F 69 14 101/64 94 01/15/17 15:06 01/15/17 15:06 01/15/17 15:06 01/15/17 15:06 01/15/17 15:06 General appearance: Present: cooperative, A&O X 3, pleasant, no acute distress, answers questions appropriately - Eye Eye exam: Present: PERRL, sclera anicteric - Neck Neck exam general surgery: Present: supple, trachea midline. Absent: lymphadenopathy - Respiratory Respiratory exam: Present: CTAB - Cardiovascular Cardiovascular exam: Present: RRR - GI/Abdominal GI/Abdominal exam: Present: normal bowel sounds, soft, tenderness (mild diffuse tenderness). Absent: distended - Extremities Exam Extremities exam: Absent: pedal edema - Back Exam Back exam: Absent: CVA tenderness (L), CVA tenderness (R) - Neurological Exam Neurological exam: Present: alert, oriented X3, no focal deficits, strengths equal and symetr throughout. Absent: facial droop, speech deficit - Skin Skin exam: Absent: rash
[2017-01-15] MEDS ORDERED: Lidocaine -MPF 2% 5 ML VIAL INFILT ONE (16:25)
[2017-01-15] MEDS ORDERED: *HR* Propofol 500 MG/50 ML BOTTLE IVC ONE (16:25)
[2017-01-17 08:04] LABS: Saccharomyces cerevisiae IgA 5.8 Units (0.0-24.9)
== END 2017-01-15 16:26 | disposition home or self-care (01) ==
LOC: EMEROO 10:29 → 3ANU 10:29
PROVIDERS: ADMIT Internal Medicine Endocrinology, Diabetes & Metabolism; ATTEND Internal Medicine
PROC: ENDOEBX (2017-01-15 09:30)
PROC: ENDOCBX (2017-01-15 09:30)